=== PATIENT | female | born 1965 | race Caucasian/White ===

== ENCOUNTER 2017-11-30 09:18 | Outpatient (CLI) | payer OTHER | END 2017-11-30 12:14 | disposition home or self-care (01) | LOC: MAMO-SONO 09:18 | DX: Z12.31 Encounter for screening mammogram for malignant neoplasm of breast (principal); N60.11 Diffuse cystic mastopathy of right breast; N60.12 Diffuse cystic mastopathy of left breast; N91.2 Amenorrhea, unspecified; F41.9 Anxiety disorder, unspecified; I10 Essential (primary) hypertension ==

== ENCOUNTER 2020-06-02 11:39 | Emergency (ER) | payer OTHER ==
[~2020-06-02] VITALS: Ht 152.4 cm; Wt 58.1 kg
[2020-06-02] MEDS ORDERED: ZOLOFT50 MG PO (12:29)
[2020-06-02] MEDS ORDERED: COZAAR50 MG PO (12:29)
[2020-06-02] MEDS ORDERED: CLONAZEPAM0.5 MG PO (12:29)
[2020-06-02] MEDS ORDERED: PRILOSEC OTC20 MG PO (12:30)
== END 2020-06-02 19:49 | disposition home or self-care (01) ==
LOC: ER 11:39
DX: M25.511 Pain in right shoulder (principal); M50.322 Other cervical disc degeneration at C5-C6 level